=== PATIENT | male | born 2005 | race Hispanic/Latino ===

== ENCOUNTER 2024-11-20 21:44 | Emergency (ER) | payer OTHER ==
[~2024-11-20] VITALS: Ht 167.6 cm; Wt 56.2 kg
[2024-11-21] MEDS: IPRATROPIUM 0.5 MG/ALBUTEROL 2.5 MG INH SOL UD 3 ML NEB ONE (01:14)
[2024-11-21] MEDS: LORATADINE 10 MG TAB PO ONE (01:49)
[2024-11-21 03:36] VITALS: BP 138/69; TEMP 98; O2SAT 98
== END 2024-11-21 03:41 | disposition home or self-care (01) ==
LOC: M ED 21:44
DX: J30.2 Other seasonal allergic rhinitis (principal)